=== PATIENT | female | born 1985 | race Native Hawaiian/Other Pacific Islander ===

== ENCOUNTER 2021-05-21 10:02 | Outpatient (CLI) | payer OTHER ==
[~2021-05-21 10:02] MED LIST: CIPRO500 MG PO; FLEXERIL5 MG PO; MELO-13 PO; TRAM50TA PO
== END 2021-05-21 19:36 | disposition home or self-care (01) ==
LOC: RAD 10:02
PROVIDERS: ATTEND Registered Nurse
DX: J06.9 Acute upper respiratory infection, unspecified (principal)

== ENCOUNTER 2023-03-08 13:01 | Outpatient (CLI) | payer OTHER | END 2023-03-08 18:58 | disposition home or self-care (01) | LOC: MAMMO 13:01 | PROVIDERS: ATTEND Nurse Practitioner Family | DX: N64.4 Mastodynia (principal) | CPT/HCPCS: G0279 ==

== ENCOUNTER 2023-03-15 10:22 | Outpatient (CLI) | payer OTHER | END 2023-03-15 19:05 | disposition home or self-care (01) | LOC: US 10:22 | PROVIDERS: ATTEND Nurse Practitioner Family | DX: N64.4 Mastodynia (principal) ==